=== PATIENT | male | born 1990 | race Caucasian/White ===

== ENCOUNTER 2020-10-28 13:23 | Emergency (ER) | payer OTHER ==
[~2020-10-28] VITALS: Ht 182.9 cm; Wt 68.0 kg
[~2020-10-28 13:23] MED LIST: Naprosyn500 MG PO; Veetids 500500 MG PO
== END 2020-10-28 14:08 | disposition home or self-care (01) ==
LOC: ER 13:23
DX: A53.9 Syphilis, unspecified (principal); F17.210 Nicotine dependence, cigarettes, uncomplicated; Z88.6 Allergy status to analgesic agent
CPT/HCPCS: 96372; 99283; J0561

== ENCOUNTER 2023-12-03 01:58 | Emergency (ER) | payer OTHER ==
[~2023-12-03] VITALS: Ht 182.9 cm; Wt 65.8 kg
[2023-12-03 06:46] VITALS: BP 138/77
[2023-12-03] MEDS ORDERED: Ibuprofen 600 MG Tab PO ONE (07:00)
== END 2023-12-03 07:12 | disposition home or self-care (01) ==
LOC: ER 01:58
DX: M25.532 Pain in left wrist (principal); F17.200 Nicotine dependence, unspecified, uncomplicated; Z88.5 Allergy status to narcotic agent
CPT/HCPCS: 73110; 99283-25; A9270